=== PATIENT | male | born 1970 | race Caucasian/White ===

== ENCOUNTER → 2017-01-13 | Outpatient (CLI) | payer BC ==
--- NOTE | 2017-01-13 09:01 | RAD ---
Indication chest and sinus congestion. Sinus pressure. Frontal and lateral views of the chest were obtained and are compared to an examination 03/18/2015. The heart and pulmonary vessels appear normal. The lungs are clear. There has not been a significant change compared to the previous exam. IMPRESSION: No acute or focal process. No significant change
== END | disposition home or self-care (01) ==
LOC: DXRADRC 08:48
PROVIDERS: ATTEND Physician Assistant Medical
DX: R09.89 Other specified symptoms and signs involving the circulatory and respiratory systems (principal)
CPT/HCPCS: 71020

== ENCOUNTER → 2017-07-29 | Outpatient (CLI) | payer BC ==
--- NOTE | 2017-07-29 09:35 | RAD ---
2 views of the Chest 07/29/2017 2:00 AM Indication: COUGH Comparison: Chest radiograph 01/13/2017 Findings: There is no focal consolidation or infiltrate identified. There is no effusion or pneumothorax. The cardiomediastinal silhouette and pulmonary vasculature are within normal limits. No osseous abnormality is identified. Impression: No evidence of acute cardiopulmonary process.
== END | disposition home or self-care (01) ==
LOC: PMG 09:14
PROVIDERS: ATTEND Physician Assistant
DX: R06.00 Dyspnea, unspecified (principal)
CPT/HCPCS: 71046

== ENCOUNTER 2020-07-14 19:01 | Emergency (ER) | payer BC ==
[~2020-07-14] VITALS: Ht 180.3 cm; Wt 126.0 kg
--- NOTE | 2020-07-14 19:17 | PHYS DOC ---
Adult General Chief Complaint Chief Complaint: MECHANICAL FALL HPI HPI Patient is a 50-year-old male who presents to the emergency department after falling in his driveway. States he was at home, and had a few drinks, and slipped and fell as he was getting his truck onto the grass. States he was intoxicated and did not feel like getting up. States EMS was called, and he did not really want come to the emergency department but EMS talked him into it. States he feels fine, has no medical complaints and wants to go home. Review of Systems Review of Systems Denies any medical complaints at this time Allergies Allergies Allergies Coded Allergies Type Severity Reaction Last Updated Verified No Known Drug Allergies 07/14/20 No Physical Exam Physical Exam Denies need for physical exam and states he would just like to call his mom and go home. EKG EKG [] Radiology/Procedures Radiology/Procedures [] Heart Score C/O Chest Pain: No Risk Factors: Risk Factors: DM, Current or recent (<one month) smoker, HTN, HLP, family history of CAD, obesity. Risk Scores: Risk Factors: DM, Current or recent (<one month) smoker, HTN, HLP, family history of CAD, obesity. Course & Med Decision Making Course & Med Decision Making Patient is a 50-year-old male, who was been drinking at home today who fell at his house and was brought to the emergency department by EMS request, recommendation. Patient denied need for medical care, has no complaints, denied need for triage/vital signs. States he feels fine, and did not really want to come to the emergency department, wants to be discharged, call his mom and go home. Offered patient something to drink, and he accepted a soda. Offered observation in the ED, but patient was very polite and stated I am fine I just want to go home. Gave strict return precautions to the ED. Patient grateful, verbalized understanding and agreed with plan of discharge. [] Dragon Disclaimer Dragon Disclaimer This electronic medical record was generated, in whole or in part, using a voice recognition dictation system. Departure Departure: Impression: Primary Impression: Fall Disposition: 01 DC HOME SELF CARE/HOMELESS Condition: GOOD Referrals: RICK MEDELLIN (PCP) Patient Instructions: Alcohol Intoxication, [id number], Fall Prevention and Home Safety, [id number] Additional Instructions: Please read all the attached information. Please be careful while ingesting alcohol as you could seriously injure yourself as discussed. You are offered observation, and work-up in the emergency department to ensure your safety but you politely declined stating you are well, and just wanted to go home and watch some TV. Please come back to the ED with new or concerning symptoms as discussed immediately. MARTY SAVAGE MD Jul 14, 2020 19:17
[2020-07-14 19:40] VITALS: BP 108/53
== END 2020-07-14 19:40 | disposition home or self-care (01) ==
LOC: ER 19:01
DX: F10.129 Alcohol abuse with intoxication, unspecified (principal); W01.0XXA Fall on same level from slipping, tripping and stumbling without subsequent striking against object, initial encounter; Y93.89 Activity, other specified; Y92.89 Other specified places as the place of occurrence of the external cause; Y99.8 Other external cause status; Y90.8 Blood alcohol level of 240 mg/100 ml or more
CPT/HCPCS: 99281-25

== ENCOUNTER 2020-08-14 22:53 | Emergency (ER) | payer BC ==
[~2020-08-14] VITALS: Ht 180.3 cm; Wt 111.4 kg
[2020-08-14] MEDS ORDERED: CONTRAST GIVEN. MC PRN (23:15)
[2020-08-14] MEDS ORDERED: IOHEXOL 300 MG/ML 75 ML VIAL. IV ONE (23:30)
[2020-08-14 23:34] LABS: BASO # 0.1 x10^3/uL (0.0-0.2); BASO % 1 % (0-3); EOS % 0 % (0-3); HEMATOCRIT 28.9 % (39.0-53.0); HEMOGLOBIN 9.5 g/dL (13.0-17.5); LYMPH % 6 % (24-48); MEAN CORPUSCULAR HEMOGLOBIN 40 pg (25-35); MEAN CORPUSCULAR HGB CONC 33 g/dL (31-37); MEAN CORPUSCULAR VOLUME 122 fL (79-100); MONO # 1.6 x10^3/uL (0.0-1.1); MONO % 9 % (0-9); NEUT # 13.9 x10^3uL (1.8-7.7); NEUT % 84 % (31-73); PLATELET COUNT 155 x10^3/uL (140-400); RED BLOOD COUNT 2.37 x10^6/uL (4.30-5.70); RED CELL DISTRIBUTION WIDTH 15.6 % (11.5-14.5); WHITE BLOOD COUNT 16.6 x10^3/uL (4.0-11.0)
[2020-08-14 23:48] LABS: % BANDS 13 % (0-9); % LYMPHS 7 % (24-48); % MONOS 10 % (0-10); % SEGS 70 % (35-66); PLT ESTIMATE ADEQUATE (ADEQUATE)
--- NOTE | 2020-08-14 23:49 | PHYS DOC ---
Past History Past Medical History: Alcoholism, COPD Past Surgical History: No Surgical History Alcohol Use: Heavy General Adult EDM: Chief Complaint: ABDOMINAL PAIN HPI: HPI: Patient is a 50-year-old male past medical history of alcohol abuse with last drink was approximately 1 months ago presents with a chief complaint of abdominal pain and swelling. Patient states abdominal pain and swelling started this a.m. Pain is located in his bilateral lower abdomen. Associated symptoms include nausea and vomiing x 1 week. On exam patient's abdomen is distended and diffusely tender. He states over the last several days he has noticed discoloration of his eyes but denies any discoloring of skin and itch. Patient also gives a history very dark urine. Patient denies any chest pain or shortness of breath. Denies abdominal surgeries. No recent use of NSAIDS. States he has not been able to take Rx Medications due to nausea and vomiting. Review of Systems: Review of Systems: Review of systems: Constitutional symptoms- No fever, no chills. Eyes- No Discharge, No Visual Loss Respiratory symptoms- No shortness of breath, No wheezing, No Dyspnea on Exertion Cardiovascular Systems; No chest pain, No Palpitations, No syncope Gastrointestinal symptoms: Positive abdominal pain, Positive nausea, Positive vomiting no diarrhea. Genitourinary symptoms: No dysuria. Musculoskeletal symptoms: No back pain No extremity pain. NEUROLOGICAL Symptoms: No headache, no generalized weakness; No focal Weakness Current Medications: Current Meds: Current Medications Medications (Trade) Dose Ordered Sig/Anamika Start Time Stop Time Status Last Admin Dose Admin Info (Do NOT chart on this entry -- for MONITORING) 1 each PRN DAILY PRN 08/14/20 23:15 08/16/20 23:14 Iohexol (Omnipaque 300 Mg/ml) 75 ml 1X ONCE 08/14/20 23:30 08/14/20 23:31 DC 08/14/20 23:24 75 ML Allergies: Allergies: Allergies Coded Allergies Type Severity Reaction Last Updated Verified No Known Drug Allergies 07/14/20 No Physical Exam: PE: General: alert, no acute distress. Skin: warm, dry and intact. Head:: Normocephalic, atraumatic. Neck: Trachea midline. Eyes: EOMI, Normal conjunctiva, No drainage scleral icterus CARDIOVASCULAR: Regular rate and rhythm RESPIRATORY: No respiratory distress Back: Full range of motion. MUSCULOSKELETAL: Full range of motion of bilateral upper and lower extremities. Edema lower extremity edema left greater than right GASTROINTESTINAL: Abdomen is distended, diffuse abdominal tenderness NEUROLOGICAL: Alert and noted to person, place and time. No neurological deficits observed Psychiatric: Cooperative. Normal judgment Current Patient Data: Labs: Laboratory Tests Test 08/14/20 23:10 White Blood Count 16.6 x10^3/uL (4.0-11.0) H Red Blood Count 2.37 x10^6/uL (4.30-5.70) L Hemoglobin 9.5 g/dL (13.0-17.5) L Hematocrit 28.9 % (39.0-53.0) L Mean Corpuscular Volume 122 fL (79-100) H Mean Corpuscular Hemoglobin 40 pg (25-35) H Mean Corpuscular Hemoglobin Concent 33 g/dL (31-37) Red Cell Distribution Width 15.6 % (11.5-14.5) H Platelet Count 155 x10^3/uL (140-400) Neutrophils (%) (Auto) 84 % (31-73) H Lymphocytes (%) (Auto) 6 % (24-48) L Monocytes (%) (Auto) 9 % (0-9) Eosinophils (%) (Auto) 0 % (0-3) Basophils (%) (Auto) 1 % (0-3) Neutrophils # (Auto) 13.9 x10^3uL (1.8-7.7) H Lymphocytes # (Auto) 1.0 x10^3/uL (1.0-4.8) Monocytes # (Auto) 1.6 x10^3/uL (0.0-1.1) H Eosinophils # (Auto) 0.0 x10^3/uL (0.0-0.7) Basophils # (Auto) 0.1 x10^3/uL (0.0-0.2) Platelet Estimate Pending EKG: EKG: [] Radiology/Procedures: Radiology/Procedures: [] Impressions: IMPRESSION: 1. There is small volume pneumoperitoneum in the upper abdomen. 2. The proximal duodenum is thick-walled with mild surrounding induration suggesting duodenitis. 3. Although not definitive the duodenum may be the source of the free air. The epicenter of the air is however more superior and anterior. A perforated gastric ulcer not well appreciated by CT would be another consideration. 4. There is mild to moderate abdominal and pelvic ascites. 5. Probable cirrhosis. 6. Moderate splenomegaly. 7. Cholelithiasis. Heart Score: C/O Chest Pain: N/A Risk Factors: Risk Factors: DM, Current or recent (<one month) smoker, HTN, HLP, family history of CAD, obesity. Risk Scores: Score 0 - 3: 2.5% MACE over next 6 weeks - Discharge Home Score 4 - 6: 20.3% MACE over next 6 weeks - Admit for Clinical Observation Score 7 - 10: 72.7% MACE over next 6 weeks - Early Invasive Strategies Course & Med Decision Making: Course & Med Decision Making Pertinent Labs and Imaging studies reviewed. (See chart for details) []Labs and Radiology reviewed and discussed with patient. Several abnormal labs. Cr 3.3 Elevated Liver Enzymes WBC 16.6 Lactic Acid >9 CT-- pneumonperitenium- suspect Treatment with IV fluids, Zosyn, Zofran and Morphine Patient transferred to [facility]. Discussed patient with Dr Hodges who accepted transfer. Discussed patient with Dr Trevino @ 0100hrs- Additional orders Protonix and NG Tube. Dragon Disclaimer: Dragon Disclaimer: This electronic medical record was generated, in whole or in part, using a voice recognition dictation system. Departure Departure: Impression: Primary Impression: Abdominal pain Additional Impressions: Cirrhosis Abdominal ascites Acute renal failure Pneumoperitoneum Leukocytosis Lactic acid acidosis Duodenitis Disposition: ADMITTED INPATIENT Admitting Physician: Other (Transfer to [facility] - Dr Espinoza Hodges) Condition: STABLE Referrals: RICK MEDELLIN (PCP) ALLIE NICHOLSON DO August 14, 2020 23:49
[2020-08-14 23:50] LABS: ALBUMIN 2.2 g/dL (3.4-5.0); ALBUMIN/GLOBULIN RATIO 0.4 (1.0-1.7); CALCIUM 9.2 mg/dL (8.5-10.1); CREATININE 3.3 mg/dL (0.7-1.3); GFR 19.9; POTASSIUM 5.1 mmol/L (3.5-5.1); TOTAL BILIRUBIN 5.6 mg/dL (0.2-1.0); TOTAL PROTEIN 7.8 g/dL (6.4-8.2)
--- NOTE | 2020-08-15 00:03 | RAD ---
PQRS Compliance Statement: One or more of the following individualized dose reduction techniques were utilized for this examinat ion: 1. Automated exposure control 2. Adjustment of the mA and/or kV according to patient size 3. Use of iterative reconstruction technique CT ABDOMEN+PELVIS W Clinical Indication: Reason: abd pain, Comparison: None. Technique: Helical CT imaging of the abdomen and pelvis is performed after 75 cc of Omnipaque 300 IV contrast. Oral contrast not administered. Findings: Lung bases are clear. Coronary artery disease. The cardiac size is normal. There is small volume intraperitoneal free air. There is mild to moderate abdominal and pelvic ascite s. There is a 2 cm gallstone. There is moderate splenomegaly, craniocaudal dimension 17.5 cm. Slightly n odular contour of the liver suggests cirrhosis. The liver is homogeneous. The pancreas, adrenal gland s are normal. Severe atherosclerotic calcification of the abdominal aorta and iliac arteries mild ane urysm of the infrarenal abdominal aorta, maximum diameter 3.3 cm. Right renal cysts do not require follow-up. There is no hydronephrosis. No obvious abnormality of the stomach. No small bowel obstruction is seen. Much of the colon is decom pressed, limiting evaluation. There are no secondary signs of appendicitis. No colon wall thickening is identified. The proximal duodenum is thick-walled and there is mild surrounding induration. Urinary bladder is normal. Prostate and seminal vesicles are normal. Vacuum disc phenomenon of L5/S1. IMPRESSION: 1. There is small volume pneumoperitoneum in the upper abdomen. 2. The proximal duodenum is thick-walled with mild surrounding induration suggesting duodenitis. 3. Although not definitive the duodenum may be the source of the free air. The epicenter of the air is however more superior and anterior. A perforated gastric ulcer not well appreciated by CT would be another consideration. 4. There is mild to moderate abdominal and pelvic ascites. 5. Probable cirrhosis. 6. Moderate splenomegaly. 7. Cholelithiasis. FOR INTERNAL CODING PURPOSES Critical result: Findings discussed with Dr. Acuna in the ED at 08/14/2020 11:57 PM. RESULT CODE: (C) Electronically signed by: Darron Agee MD (08/15/2020 12:00 AM) [facility]KEGEEJose Miguel
[2020-08-15] MEDS ORDERED: IV NORMAL SALINE 50ML 50 ML ONE (00:06)
[2020-08-15] MEDS ORDERED: PIPERACILLIN/TAZOBACTAM 4.5 GM VIAL IV ONE (00:07)
[2020-08-15] MEDS ORDERED: PIPERACILLIN/TAZOBACTAM 4.5 GM in IV NORMAL SALINE 50ML 50 ML IV ONE (00:30)
[2020-08-15 00:33] LABS: BGAS PH 7.41 (7.35-7.46)
[2020-08-15] MEDS ORDERED: PANTOPRAZOLE IV 40 MG VIAL. ONE (01:07)
[2020-08-15] MEDS ORDERED: IV NORMAL SALINE 100ML 100 ML ONE (01:07)
[2020-08-15] MEDS ORDERED: PANTOPRAZOLE IV 40 MG VIAL. IVP ONE (01:30)
[2020-08-15] MEDS ORDERED: MORPHINE SULFATE 4 MG/ML DISP.SYRIN. IV ONE (01:30)
[2020-08-15] MEDS ORDERED: IV NORMAL SALINE 1,000ML 1,000 ML IV ONE (01:30)
[2020-08-15] MEDS ORDERED: PANTOPRAZOLE IV 80 MG in IV NORMAL SALINE 100ML 100 ML IV ONE (01:30)
[2020-08-15] MEDS ORDERED: ONDANSETRON PF 4 MG/2 ML VIAL. IVP ONE (01:30)
[2020-08-15 01:35] VITALS: BP 108/57
== END 2020-08-15 02:41 | disposition short-term general hospital (02) ==
LOC: ER 22:53
DX: N17.9 Acute kidney failure, unspecified (principal); K70.31 Alcoholic cirrhosis of liver with ascites; D72.829 Elevated white blood cell count, unspecified; E87.2 Acidosis; K29.80 Duodenitis without bleeding; R74.8 Abnormal levels of other serum enzymes; J44.9 Chronic obstructive pulmonary disease, unspecified
CPT/HCPCS: 36415; 36600; 74177; 80053; 82803; 83605; 83690; 84484; 85007; 85025; 96365; 96367; 96375; 99285; C9113; G0480; J2270; J2405; J2543; J7030; Q9967